=== PATIENT | male | born 1980 | race African-American/Black ===

== ENCOUNTER 2019-07-02 15:20 | Emergency (ER) | payer SELFPAY ==
--- NOTE | 2019-07-02 17:16 | RAD REPORT ---
EXAM DESCRIPTION: RAD - Chest Pa And Lat (2 Views) - 07/02/2019 5:10 pm CLINICAL HISTORY: Congestion;Cough COMPARISON: None. TECHNIQUE: PA and lateral views of the chest were obtained. FINDINGS: The lungs are clear. Heart size is normal and central vasculature is within normal limit s. No pleural effusion or pneumothorax seen. No acute bony finding noted. No aortic abnormality. IMPRESSION: No acute cardiopulmonary process.
[2019-07-02] MEDS ORDERED: IPRATROPIUM BROM 0.5MG/2.5ML ONE (18:14)
[2019-07-02] MEDS ORDERED: ALBUTEROL 2.5 MG/3 ML NEB SOL ONE (18:14)
--- NOTE | 2019-07-02 18:32 | ER ---
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 Denies fever. Transition of care: patient was not received from another setting of care. Onset of symptoms was June 28, 2019. Risk Assessment: Do you want to hurt yourself or someone else? Patient reports no desire to harm self or others. Care prior to arrival: None. 15:47 Method Of Arrival: Ambulatory hb 15:47 Acuity: ARIS 3 hb 16:00 Initial Sepsis Screen: Does the patient meet any 2 criteria? No. Patient's initial wh sepsis screen is negative. Does the patient have a suspected source of infection? No. Patient's initial sepsis screen is negative. Triage Assessment: 16:00 Respiratory: Onset: The symptoms/episode began/occurred yesterday, the patient reports wh symptoms have resolved. Historical: - Allergies: 15:48 Aspirin; hb - Home Meds: 15:48 None [Active]; hb - PMHx: 15:48 None; hb - PSHx: 15:48 None; hb - Immunization history:: Adult Immunizations up to date. - Social history:: Smoking status: Patient/guardian denies using tobacco. - Ebola Screening: : No symptoms or risks identified at this time. Screenin:00 Abuse screen: Denies threats or abuse. Denies injuries from another. Nutritional wh screening: No deficits noted. Tuberculosis screening: No symptoms or risk factors identified. Fall Risk None identified. Assessment: 16:00 General: Appears in no apparent distress. Behavior is calm, cooperative, appropriate wh for age. Pain: Denies pain. Neuro: Level of Consciousness is awake, alert, obeys commands, Oriented to person, place, time, situation, Appropriate for age. Cardiovascular: Heart tones S1 S2 Rhythm is regular. Respiratory: Reports shortness of breath Airway is patent Respiratory effort is even, unlabored, Respiratory pattern is regular, symmetrical, Breath sounds are clear bilaterally. GI: Abdomen is flat, non-distended. : No signs and/or symptoms were reported regarding the genitourinary system. EENT: No signs and/or symptoms were reported regarding the EENT system. Derm: Skin is intact, is healthy with good turgor, Skin is pink, warm \T\ dry. normal. Musculoskeletal: Circulation, motion, and sensation intact. 17:15 Reassessment: Patient appears in no apparent distress at this time. No changes from previously documented assessment. Patient and/or family updated on plan of care and expected duration. Pain level reassessed. Patient is alert, oriented x 3, equal unlabored respirations, skin warm/dry/pink. 18:37 Reassessment: Patient appears in no apparent distress at this time. No changes from previously documented assessment. Patient and/or family updated on plan of care and expected duration. Pain level reassessed. Patient is alert, oriented x 3, equal unlabored respirations, skin warm/dry/pink. Patient states feeling better. Patient states symptoms have improved. Vital Signs: 15:48 BP 141 / 93; Pulse 74; Resp 16; Temp 98.3; Pulse Ox 97% ; Weight 82 kg; Height 6 ft. hb (182.88 cm); Pain 8/10; 17:15 BP 151 / 103; Pulse 62; Resp 18; Pulse Ox 97% on R/A; wh 18:38 BP 145 / 105; Pulse 64; Resp 18; Pulse Ox 100% on R/A; wh 15:48 Body Mass Index 24.52 (82.00 kg, 182.88 cm) hb ED Course: 15:47 Patient arrived in ED. hb 15:48 Triage completed. hb 15:48 Arm band placed on. hb 15:55 Minoo Quintanilla [facility]C [facility] kb 15:55 Mansoor Ramirez MD is Attending Physician. kb 16:00 Patient has correct armband on for positive identification. Bed in low position. Call light in reach. Side rails up X 1. Pulse ox on. NIBP on. 16:37 Miley Morgan is Primary Nurse. 17:48 Chest Pa And Lat (2 Views) XRAY In Process Unspecified. EDMS 18:39 No provider procedures requiring assistance completed. Patient did not have IV access during this emergency room visit. Administered Medications: 18:14 Drug: Albuterol 2.5 mg Route: Inhalation; 18:45 Follow up: Response: No adverse reaction; Wheezing diminished 18:14 Drug: AtroVENT Aerosol 0.5 mg Route: Inhalation; 18:45 Follow up: Response: No adverse reaction; Wheezing diminished Outcome: 18:31 Discharge ordered by . ivana 18:44 Discharged to home ambulatory. 18:44 Condition: stable 18:44 Discharge instructions given to patient, Instructed on discharge instructions, follow up and referral plans. medication usage, POC SOB Demonstrated understanding of instructions, follow-up care, medications, POC Prescriptions given X 1. 18:45 Patient left the ED. 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 Denies fever. hb
--- NOTE | 2019-07-02 18:33 | EDPHYS ---
Physician Documentation [facility] Name: Flaquito Jules Age: 38 yrs Sex: Male : 1980 Arrival Date: 07/02/2019 Time: 15:47 Bed 23 Private MD: ED Physician Mansoor Ramirez HPI: 07/02 18:29 This 38 yrs old Black Male presents to ER via Ambulatory with complaints of Shortness kb Of Breath. 18:29 The patient has shortness of breath at rest. Onset: The symptoms/episode began/occurred kb yesterday. Duration: The symptoms are continuous. The patient's shortness of breath is aggravated by nothing, is alleviated by nothing. Associated signs and symptoms: Pertinent positives: non-productive cough. Severity of symptoms: At their worst the symptoms were mild moderate in the emergency department the symptoms are unchanged. The patient has not experienced similar symptoms in the past. The patient has not recently seen a physician. 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 Reports he had asthma as a kid, but hasn't had a problem with it in years. Historical: - Allergies: 15:48 Aspirin; hb - Home Meds: 15:48 None [Active]; hb - PMHx: 15:48 None; hb - PSHx: 15:48 None; hb - Immunization history:: Adult Immunizations up to date. - Social history:: Smoking status: Patient/guardian denies using tobacco. - Ebola Screening: : No symptoms or risks identified at this time. ROS: 18:28 Constitutional: Negative for fever, chills, and weight loss, ENT: Negative for injury, kb pain, and discharge, Neck: Negative for injury, pain, and swelling, Cardiovascular: Negative for chest pain, palpitations, and edema, Abdomen/GI: Negative for abdominal pain, nausea, vomiting, diarrhea, and constipation, Back: Negative for injury and pain, : Negative for injury, bleeding, discharge, and swelling, MS/Extremity: Negative for injury and deformity, Skin: Negative for injury, rash, and discoloration, Neuro: Negative for headache, weakness, numbness, tingling, and seizure. 18:28 Respiratory: Positive for cough, shortness of breath. Exam: 18:28 Constitutional: This is a well developed, well nourished patient who is awake, alert, kb and in no acute distress. Head/Face: Normocephalic, atraumatic. ENT: Nares patent. No nasal discharge, no septal abnormalities noted. Tympanic membranes are normal and external auditory canals are clear. Oropharynx with no redness, swelling, or masses, exudates, or evidence of obstruction, uvula midline. Mucous membranes moist. Neck: Trachea midline, no thyromegaly or masses palpated, and no cervical lymphadenopathy. Supple, full range of motion without nuchal rigidity, or vertebral point tenderness. No Meningismus. Chest/axilla: Normal chest wall appearance and motion. Nontender with no deformity. No lesions are appreciated. Cardiovascular: Regular rate and rhythm with a normal S1 and S2. No gallops, murmurs, or rubs. Normal PMI, no JVD. No pulse deficits. Respiratory: Lungs have equal breath sounds bilaterally, clear to auscultation and percussion. No rales, rhonchi or wheezes noted. No increased work of breathing, no retractions or nasal flaring. Abdomen/GI: Soft, non-tender, with normal bowel sounds. No distension or tympany. No guarding or rebound. No evidence of tenderness throughout. Back: No spinal tenderness. No costovertebral tenderness. Full range of motion. Skin: Warm, dry with normal turgor. Normal color with no rashes, no lesions, and no evidence of cellulitis. MS/ Extremity: Pulses equal, no cyanosis. Neurovascular intact. Full, normal range of motion. Neuro: Awake and alert, GCS 15, oriented to person, place, time, and situation. Cranial nerves II-XII grossly intact. Motor strength 5/5 in all extremities. Sensory grossly intact. Cerebellar exam normal. Normal gait. Vital Signs: 15:48 BP 141 / 93; Pulse 74; Resp 16; Temp 98.3; Pulse Ox 97% ; Weight 82 kg; Height 6 ft. hb (182.88 cm); Pain 8/10; 17:15 BP 151 / 103; Pulse 62; Resp 18; Pulse Ox 97% on R/A; wh 18:38 BP 145 / 105; Pulse 64; Resp 18; Pulse Ox 100% on R/A; wh 15:48 Body Mass Index 24.52 (82.00 kg, 182.88 cm) hb MDM: 16:38 Patient medically screened. kb 18:26 Data reviewed: vital signs, nurses notes. Data interpreted: Pulse oximetry: on room air kb is 100 %. Interpretation: normal. Counseling: I had a detailed discussion with the patient and/or guardian regarding: the historical points, exam findings, and any diagnostic results supporting the discharge/admit diagnosis, radiology results, the need for outpatient follow up, a family practitioner, to return to the emergency department if symptoms worsen or persist or if there are any questions or concerns that arise at home. 18:28 ED course: Pt reports he feels better after neb treatment.. kb 07/02 16:36 Order name: Chest Pa And Lat (2 Views) XRAY; Complete Time: 18:02 kb Administered Medications: 18:14 Drug: Albuterol 2.5 mg Route: Inhalation; 18:45 Follow up: Response: No adverse reaction; Wheezing diminished wh 18:14 Drug: AtroVENT Aerosol 0.5 mg Route: Inhalation; 18:45 Follow up: Response: No adverse reaction; Wheezing diminished wh Disposition: 07/03 09:28 Co-signature as Attending Physician, Mansoor Ramirez MD I agree with the assessment and kdr plan of care. Disposition: 07/02/19 18:31 Discharged to Home. Impression: Dyspnea. - Condition is Stable. - Discharge Instructions: Shortness of Breath, [id number]. - Prescriptions for Albuterol Sulfate 90 mcg/actuation - inhale 1-2 puff by INHALATION route every 4-6 hours; 1 Inhaler. - Medication Reconciliation Form, Thank You Letter, Antibiotic Education, Prescription Opioid Use form. - Follow up: Emergency Department; When: As needed; Reason: Worsening of condition. Follow up: Private Physician; When: 2 - 3 days; Reason: Recheck today's complaints, Continuance of care, Re-evaluation by your physician. Signatures: Dispatcher [employer] EDMS Minoo Quintanilla, CONSTRUCTION LINEMAN-C FRANCISCO-Mansoor Rodriges MD MD [facility] [place] Gaona RN RN Miley Diana Corrections: (The following items were deleted from the chart) 07/02 18:45 18:31 07/02/2019 18:31 Discharged to Home. Impression: Dyspnea. Condition is Stable. wh Forms are Medication Reconciliation Form, Thank You Letter, Antibiotic Education, Prescription Opioid Use. Follow up: Emergency Department; When: As needed; Reason: Worsening of condition. Follow up: Private Physician; When: 2 - 3 days; Reason: Recheck today's complaints, Continuance of care, Re-evaluation by your physician. kb
[2019-07-02 20:32] VITALS: TEMP 98.3
[2019-07-02 20:35] VITALS: BP 145/105; O2SAT 100
== END 2019-07-02 18:45 | disposition home or self-care (01) ==
LOC: ER 15:20
DX: R06.00 Dyspnea, unspecified (principal)
CPT/HCPCS: 71046; 99284

== ENCOUNTER 2019-07-06 13:39 | Emergency (ER) | payer SELFPAY ==
[2019-07-06 14:32] LABS: Absolute Lymphocytes (CBC) 2.4 K/uL (0.7-4.9); Basophils % 1.3 % (0-1.3); Hematocrit 41.8 % (39.6-49.0); Lymphocytes % 31.4 % (15.3-44.8); MPV 8.6 fL (7.6-11.3); RBC Red Blood Cell Count 4.39 M/uL (4.33-5.43)
[2019-07-06 14:47] LABS: Protime INR 1.1
[2019-07-06 14:49] LABS: ALT/SGPT 37 U/L (12-78); AST/SGOT 20 U/L (15-37); Albumin 3.7 g/dL (3.4-5.0); Alkaline Phosphatase 71 U/L (45-117); BUN Blood Urea Nitrogen 17 mg/dL (7-18); Bicarbonate 30 mmol/L (21-32); Bilirubin Direct 0.2 mg/dL (0-0.2); Bilirubin Total 0.8 mg/dL (0.2-1.0); Glucose Level 78 mg/dL (74-106); Magnesium 2.3 mg/dL (1.8-2.4); NT PRO-BNP 23 pg/mL (<125); Potassium 3.6 mmol/L (3.5-5.1); Sodium Level 141 mmol/L (136-145); Troponin (Emerg Dept Use Only) < 0.02 ng/mL (0.0-0.045)
[2019-07-06] MEDS ORDERED: IPRATROPIUM BROM 0.5MG/2.5ML ONE (15:17)
[2019-07-06] MEDS ORDERED: predniSONE 20 MG TAB ONE (15:17)
[2019-07-06] MEDS ORDERED: ALBUTEROL 2.5 MG/3 ML NEB SOL ONE ×2 (15:17→15:52)
[2019-07-06] MEDS ORDERED: METHYLPREDNISOLONE 125 MG INJ ONE (15:17)
[2019-07-06] MEDS ORDERED: Levofloxacin500mg IV 500 MG/100 ML BAG IV ONE (15:18)
--- NOTE | 2019-07-06 15:34 | RAD REPORT ---
EXAM DESCRIPTION: RAD - Chest Single View - 07/06/2019 2:45 pm CLINICAL HISTORY: Cough, dyspnea COMPARISON: July 02 TECHNIQUE: AP portable chest image was obtained 1440 hours . FINDINGS: Lung volumes are low but clear. No failure or volume overload. Heart and vasculature are n ormal. No measurable pleural effusion and no pneumothorax. No acute bony abnormality seen. No acute a ortic findings suspected. IMPRESSION: No acute cardiopulmonary process. No significant interval change.
--- NOTE | 2019-07-06 15:42 | EKG ---
Test Date: 2019-07-06 Test Time: 14:02:52 Appraiser Personal Property: FELICIA MEASUREMENT RESULTS: Intervals: Rate: 77 IL: 156 QRSD: 78 QT: 366 QTc: 414 [place]: P: 72 IL: 156 QRS: 82 T: 59 INTERPRETIVE STATEMENTS: Normal sinus rhythm with sinus arrhythmia Normal ECG No previous ECG available for comparison Electronically Signed On 07-06-19 15:41:38 MARKET RISK ANALYST by Morgan Bynum
--- NOTE | 2019-07-06 16:19 | ER ---
Nurse's Notes [facility] Name: Flaquito Jules Age: 38 yrs Sex: Male : 1980 Arrival Date: 07/06/2019 Time: 13:42 Bed 30 Private MD: Diagnosis: Cough;Dyspnea;Asthma Presentation: 07/06 13:44 Presenting complaint: Patient states: "I got a real bad shortness of breath. I was here aj1 evening and I have a real bad cough now. I work around a lot of dust so I've been fine the whole weekend, but today theres too much dust in the air." Patient reports that he had a chest X-Ray done on and it was normal. Denies fever. Transition of care: patient was not received from another setting of care. Onset of symptoms was 2018. Risk Assessment: Do you want to hurt yourself or someone else? Patient reports no desire to harm self or others. Initial Sepsis Screen: Does the patient meet any 2 criteria? No. Patient's initial sepsis screen is negative. Does the patient have a suspected source of infection? No. Patient's initial sepsis screen is negative. Care prior to arrival: None. 13:44 Method Of Arrival: Ambulatory aj1 13:44 Acuity: ARIS 4 aj1 Triage Assessment: 13:47 General: Appears in no apparent distress. comfortable, Behavior is calm, cooperative, aj1 appropriate for age. Pain: Complains of pain in chest Pain currently is 9 out of 10 on a pain scale. Neuro: Level of Consciousness is awake, alert, obeys commands. Cardiovascular: Patient's skin is warm and dry. Respiratory: Reports shortness of breath cough that is non-productive, Airway is patent Respiratory effort is even, unlabored, Respiratory pattern is regular, symmetrical, Onset: The symptoms/episode began/occurred this morning, the patient has mild shortness of breath. Historical: - Allergies: 13:47 Aspirin; aj1 - Home Meds: 13:47 None [Active]; aj1 - PMHx: 13:47 None; aj1 - PSHx: 13:47 None; aj1 - Immunization history:: Flu vaccine is not up to date. - Social history:: Smoking status: Patient uses tobacco products, denies chronic smoking, but will smoke occasionally. - Ebola Screening: : Patient denies travel to an Ebola-affected area in the 21 days before illness onset. - Family history:: not pertinent. Screenin:00 Abuse screen: Denies threats or abuse. Nutritional screening: No deficits noted. tr5 Tuberculosis screening: No symptoms or risk factors identified. Fall Risk None identified. Assessment: 14:00 General: Appears uncomfortable, Behavior is calm, cooperative, appropriate for age. tr5 Pain: Denies pain. Neuro: Level of Consciousness is awake, alert, obeys commands, Oriented to person, place, time, Furnace Checker are equal bilaterally Moves all extremities. Cardiovascular: Heart tones present Capillary refill < 3 seconds Pulses are all present. Edema is absent. Rhythm is regular. Respiratory: Airway is patent Respiratory effort is even, unlabored, Respiratory pattern is regular, symmetrical, Breath sounds are clear bilaterally. Respiratory: Reports shortness of breath cough that is. GI: No signs and/or symptoms were reported involving the gastrointestinal system. : No signs and/or symptoms were reported regarding the genitourinary system. EENT: No signs and/or symptoms were reported regarding the EENT system. Derm: No signs and/or symptoms reported regarding the dermatologic system. Musculoskeletal: No signs and/or symptoms reported regarding the musculoskeletal system. Vital Signs: 13:47 BP 124 / 90; Pulse 96; Resp 18; Temp 99.0; Pulse Ox 95% on R/A; Weight 74.84 kg (R); aj1 Height 6 ft. 0 in. (182.88 cm) (R); Pain 9/10; 14:25 BP 141 / 93; Pulse 71; Resp 18; Temp 98.4(O); Pulse Ox 91% ; mh5 15:56 BP 138 / 92; Pulse 89; Resp 22; Temp 98.7(O); Pulse Ox 99% on 2 lpm NC; mh5 13:47 Body Mass Index 22.38 (74.84 kg, 182.88 cm) aj1 ED Course: 13:42 Patient arrived in ED. mr 13:47 Triage completed. aj1 13:47 Arm band placed on Patient placed in an exam room. aj1 13:49 Dionte Carrasquillo MD is Attending Physician. [facility] 13:56 Bassem Ashley RN is Primary Nurse. tr5 14:13 EKG done, by prototype technician. reviewed by Dionte Carrasquillo MD. [facility] 14:24 Initial lab(s) drawn, by ca, sent to lab. Inserted saline lock: 20 gauge in right mh5 antecubital area, using aseptic technique. 14:25 Patient has correct armband on for positive identification. Placed in gown. Bed in low mh5 position. Call light in reach. Side rails up X 1. Warm blanket given. retaining room cutter on. Pulse ox on. NIBP on. 14:27 Basic Metabolic Panel Sent. [facility] 14:27 CBC with Diff Sent. [facility] 14:27 LFT's Sent. [facility] 14:27 Magnesium Sent. [facility] 14:27 NT PRO-BNP Sent. [facility] 14:28 PT-INR Sent. [facility] 14:28 Troponin (emerg Dept Use Only) Sent. [facility] 14:45 XRAY Chest (1 view) In Process Unspecified. EDKS 16:18 Raymond Pike MD is Referral Physician. [facility] 16:51 No provider procedures requiring assistance completed. IV discontinued. tr5 Administered Medications: 15:10 CANCELLED (Duplicate Order): predniSONE 20 mg PO once [facility] 15:26 Drug: predniSONE 40 mg Route: PO; tr5 16:00 Follow up: Response: Marked relief of symptoms tr5 15:27 Drug: Albuterol - atroVENT (3:1) (2.5 mg - 0.5 mg) 3 ml Route: Nebulizer; tr5 15:27 Drug: SOLU-Medrol 125 mg Route: IVP; Site: right antecubital; tr5 16:48 Follow up: Response: Marked relief of symptoms tr5 15:27 Drug: levofloxacin 500 mg Volume: 100 ml; Route: IVPB; Infused Over: 60 mins; Site: tr5 right antecubital; 15:58 Drug: Albuterol 5 mg Route: Inhalation; tr5 Outcome: 16:18 Discharge ordered by . [facility] 16:51 Discharged to home ambulatory. tr5 16:51 Condition: stable 16:51 Discharge instructions given to patient, Instructed on discharge instructions, follow up and referral plans. medication usage, Demonstrated understanding of instructions, follow-up care, medications, Prescriptions given X 4. 16:54 Patient left the ED. tr5 Signatures: Dispatcher [employer] EDKS Eliza Poole RN RN aj1 Dionte Carrasquillo MD MD cha Rivera, Jennifer Ruffin, Tana 5 Asya Jones 3 Bassem Ashley RN RN tr5
--- NOTE | 2019-07-06 16:20 | EDPHYS ---
Physician Documentation [facility] Name: Flaquito Jules Age: 38 yrs Sex: Male : 1980 Arrival Date: 07/06/2019 Time: 13:42 Bed 30 Private MD: ED Physician Dionte Carrasquillo HPI: 07/06 15:08 This 38 yrs old Black Male presents to ER via Ambulatory with complaints of Cough, ro Shortness Of Breath. 15:08 The patient or guardian reports airway noise, cough, difficulty breathing. Onset: The ro symptoms/episode began/occurred 2 day(s) ago. Severity of symptoms: At their worst the symptoms were mild, in the emergency department the symptoms are unchanged. Modifying factors: The symptoms are alleviated by nothing, the symptoms are aggravated by cold weather, damp environment, exertion. Associated signs and symptoms: The patient has no apparent associated signs or symptoms. The patient has experienced similar episodes in the past, a few times. Historical: - Allergies: 13:47 Aspirin; aj1 - Home Meds: 13:47 None [Active]; aj1 - PMHx: 13:47 None; aj1 - PSHx: 13:47 None; aj1 - Immunization history:: Flu vaccine is not up to date. - Social history:: Smoking status: Patient uses tobacco products, denies chronic smoking, but will smoke occasionally. - Ebola Screening: : Patient denies travel to an Ebola-affected area in the 21 days before illness onset. - Family history:: not pertinent. ROS: 15:08 Constitutional: Negative for fever, chills, and weight loss, Eyes: Negative for injury, ro pain, redness, and discharge, ENT: Negative for injury, pain, and discharge, Neck: Negative for injury, pain, and swelling, Cardiovascular: Negative for chest pain, palpitations, and edema, Abdomen/GI: Negative for abdominal pain, nausea, vomiting, diarrhea, and constipation, Back: Negative for injury and pain, : Negative for injury, bleeding, discharge, and swelling, MS/Extremity: Negative for injury and deformity, Skin: Negative for injury, rash, and discoloration, Neuro: Negative for headache, weakness, numbness, tingling, and seizure, Psych: Negative for depression, anxiety, suicide ideation, homicidal ideation, and hallucinations, Allergy/Immunology: Negative for hives, rash, and allergies, Endocrine: Negative for neck swelling, polydipsia, polyuria, polyphagia, and marked weight changes, Hematologic/Lymphatic: Negative for swollen nodes, abnormal bleeding, and unusual bruising. 15:08 Respiratory: Positive for cough, shortness of breath, on exertion. Exam: 15:08 Constitutional: This is a well developed, well nourished patient who is awake, alert, ro and in no acute distress. Head/Face: Normocephalic, atraumatic. Eyes: Pupils equal round and reactive to light, extra-ocular motions intact. Lids and lashes normal. Conjunctiva and sclera are non-icteric and not injected. Cornea within normal limits. Periorbital areas with no swelling, redness, or edema. ENT: Nares patent. No nasal discharge, no septal abnormalities noted. Tympanic membranes are normal and external auditory canals are clear. Oropharynx with no redness, swelling, or masses, exudates, or evidence of obstruction, uvula midline. Mucous membranes moist. Neck: Trachea midline, no thyromegaly or masses palpated, and no cervical lymphadenopathy. Supple, full range of motion without nuchal rigidity, or vertebral point tenderness. No Meningismus. Chest/axilla: Normal chest wall appearance and motion. Nontender with no deformity. No lesions are appreciated. Cardiovascular: Regular rate and rhythm with a normal S1 and S2. No gallops, murmurs, or rubs. Normal PMI, no JVD. No pulse deficits. Abdomen/GI: Soft, non-tender, with normal bowel sounds. No distension or tympany. No guarding or rebound. No evidence of tenderness throughout. Back: No spinal tenderness. No costovertebral tenderness. Full range of motion. Male : Normal genitalia with no discharge or lesions. Skin: Warm, dry with normal turgor. Normal color with no rashes, no lesions, and no evidence of cellulitis. MS/ Extremity: Pulses equal, no cyanosis. Neurovascular intact. Full, normal range of motion. Neuro: Awake and alert, GCS 15, oriented to person, place, time, and situation. Cranial nerves II-XII grossly intact. Motor strength 5/5 in all extremities. Sensory grossly intact. Cerebellar exam normal. Normal gait. Psych: Awake, alert, with orientation to person, place and time. Behavior, mood, and affect are within normal limits. 15:08 Respiratory: the patient does not display signs of respiratory distress, Respirations: normal, Breath sounds: rhonchi, wheezing: expiratory Vital Signs: 13:47 BP 124 / 90; Pulse 96; Resp 18; Temp 99.0; Pulse Ox 95% on R/A; Weight 74.84 kg (R); aj1 Height 6 ft. 0 in. (182.88 cm) (R); Pain 9/10; 14:25 BP 141 / 93; Pulse 71; Resp 18; Temp 98.4(O); Pulse Ox 91% ; mh5 15:56 BP 138 / 92; Pulse 89; Resp 22; Temp 98.7(O); Pulse Ox 99% on 2 lpm NC; mh5 13:47 Body Mass Index 22.38 (74.84 kg, 182.88 cm) aj1 MDM: 13:49 Patient medically screened. [facility] 15:08 Data reviewed: vital signs, nurses notes, lab test result(s), EKG, radiologic studies, ro plain films. 07/06 13:49 Order name: Basic Metabolic Panel; Complete Time: 15:06 [facility] 07/06 13:49 Order name: CBC with Diff; Complete Time: 15:06 [facility] 07/06 13:49 Order name: LFT's; Complete Time: 15:06 [facility] 07/06 13:49 Order name: Magnesium; Complete Time: 15:06 [facility] 07/06 13:49 Order name: NT PRO-BNP; Complete Time: 15:06 [facility] 07/06 13:49 Order name: PT-INR; Complete Time: 15:06 [facility] 07/06 13:49 Order name: Troponin (emerg Dept Use Only); Complete Time: 15:06 [facility] 07/06 13:49 Order name: XRAY Chest (1 view) [facility] 07/06 13:49 Order name: EKG; Complete Time: 13:52 [facility] 07/06 13:49 Order name: Cardiac monitoring; Complete Time: 14:03 [facility] 07/06 13:49 Order name: EKG - Nurse/Tech; Complete Time: 14:05 [facility] 07/06 13:49 Order name: IV Saline Lock; Complete Time: 14:48 [facility] 07/06 13:49 Order name: Labs collected and sent; Complete Time: 14:47 [facility] 07/06 13:49 Order name: O2 Per Protocol; Complete Time: 14:06 [facility] 07/06 13:49 Order name: O2 Sat Monitoring; Complete Time: 14:05 [facility] Administered Medications: 15:10 CANCELLED (Duplicate Order): predniSONE 20 mg PO once [facility] 15:26 Drug: predniSONE 40 mg Route: PO; tr5 16:00 Follow up: Response: Marked relief of symptoms tr5 15:27 Drug: Albuterol - atroVENT (3:1) (2.5 mg - 0.5 mg) 3 ml Route: Nebulizer; tr5 15:27 Drug: SOLU-Medrol 125 mg Route: IVP; Site: right antecubital; tr5 16:48 Follow up: Response: Marked relief of symptoms tr5 15:27 Drug: levofloxacin 500 mg Volume: 100 ml; Route: IVPB; Infused Over: 60 mins; Site: tr5 right antecubital; 15:58 Drug: Albuterol 5 mg Route: Inhalation; tr5 Disposition: 07/06/19 16:18 Discharged to Home. Impression: Cough, Dyspnea, Asthma. - Condition is Stable. - Discharge Instructions: Asthma, Adult, Shortness of Breath, Cool Mist Vaporizer, Shortness of Breath, Smaj-ez-[id number], Asthma, Adult, Piwb-gk-Dpql, Cough, Adult, Ugsc-aw-Lmjq, Cough, Adult. - Prescriptions for Levaquin 500 mg Oral Tablet - take 1 tablet by ORAL route once daily for 7 days; 7 tablet. Albuterol Sulfate 2.5 mg /3 mL (0.083 %) Inhalation Solution for Nebulization - inhale 1 unit by NEBULIZATION route every 8 hours As needed; 1 box. Prednisone 20 mg Oral Tablet - take 2 tablet by ORAL route once daily for 5 days; 10 tablet. Albuterol Sulfate 90 mcg/actuation - inhale 1-2 puff by INHALATION route every 4-6 hours; 1 Inhaler. - Medication Reconciliation Form, Thank You Letter, Antibiotic Education, Prescription Opioid Use form. - Follow up: Private Physician; When: 2 - 3 days; Reason: Recheck today's complaints, Continuance of care, Re-evaluation by your physician. Follow up: Raymond Pike; When: 2 - 3 days; Reason: Recheck today's complaints, Re-evaluation by your physician. - Problem is new. - Symptoms have improved. Signatures: Dispatcher [employer] EDEliza Hackett RN RN aj1 Dionte Carrasquillo MD MD cha Rodriguez, Tommie, RN RN tr5 Corrections: (The following items were deleted from the chart) 15:10 15:08 predniSONE 20 mg PO once ordered. ro starr 16:54 16:18 07/06/2019 16:18 Discharged to Home. Impression: Cough; Dyspnea; Asthma. tr5 Condition is Stable. Discharge Instructions: Asthma, Adult, Shortness of Breath, Cool Mist Vaporizer, Shortness of Breath, Fofj-na-Cjqi, Asthma, Adult, Spng-vo-Pedg, Cough, Adult, Wtxg-bz-Ytaf, Cough, Adult. Prescriptions for Levaquin 500 mg Oral Tablet - take 1 tablet by ORAL route once daily for 7 days; 7 tablet, Albuterol Sulfate 2.5 mg /3 mL (0.083 %) Inhalation Solution for Nebulization - inhale 1 unit by NEBULIZATION route every 8 hours As needed; 1 box, Prednisone 20 mg Oral Tablet - take 2 tablet by ORAL route once daily for 5 days; 10 tablet, Albuterol Sulfate 90 mcg/actuation - inhale 1-2 puff by INHALATION route every 4-6 hours; 1 Inhaler. and Forms are Medication Reconciliation Form, Thank You Letter, Antibiotic Education, Prescription Opioid Use. Follow up: Private Physician; When: 2 - 3 days; Reason: Recheck today's complaints, Continuance of care, Re-evaluation by your physician. Follow up: Raymond Pike; When: 2 - 3 days; Reason: Recheck today's complaints, Re-evaluation by your physician. Problem is new. Symptoms have improved. [facility]
[2019-07-06 17:04] VITALS: BP 138/92; TEMP 98.7; O2SAT 99
== END 2019-07-06 16:54 | disposition home or self-care (01) ==
LOC: ER 13:39
DX: R06.00 Dyspnea, unspecified (principal); J45.909 Unspecified asthma, uncomplicated; Z72.0 Tobacco use; Z88.6 Allergy status to analgesic agent
CPT/HCPCS: 36415; 71045; 80048; 80076; 83735; 83880; 84484; 85025; 85610; 93005; 94640; 96374; 96375; 99285; J2930; J7512

== ENCOUNTER 2020-08-05 19:01 | Emergency (ER) | payer OTHER, SELFPAY ==
--- OUTSIDE RECORDS SUMMARY | 2020-08-05 19:04 | XMS REPORT | Encounter Summary ---
:1980 Author Care Team Providers Name Role Phone Rozina Beth OTHER [phone] Reason for Visit Pain Instructions 1. Shoulder pain shoulder pain: care instru ctions cyclobenzaprine 10 mg tabl et Tylenol-Codeine #3 300 mg- 30 mg tablet 2. Pain in right arm Discussion Note: None recorded. Plan of Care Patient Instructions F/U if no improvement in 2 weeks fo r possible imaging. Do not lift more than 10lbs, stop any activity that increases pain. Reminders Provider Appointments Wellness on or around Faviola jones Artis Exam 03/11/2021 DORA Campos Lab None recorded. Referral None recorded. Procedures None recorded. Surgeries None recorded. Imaging None recorded. Medications Name Start Date albuterol sulfate HFA 90 mcg/actuation aerosol inhaler Inhale 2 puffs every 4 hours by inhalation route. cyclobenzaprine 10 mg tablet Take 1 tablet 3 times a day by oral route for 15 days . ibuprofen Tylenol-Codeine #3 300 mg-30 mg tablet 1-2 tabs p.o. q 6 hours PRN pain Medications Administered None recorded. Vitals Height Weight BMI Blood Pressure 72 in 173 lbs 12.8 oz 23.6 kg/m2 129/75 mm[Hg] Results Lab Results None recorded. Allergies Code Code System Name Reaction Severity Status Onset 1191 RxNorm Aspirin Hives Moderate Active Problems No Known Problems Procedures None recorded. Vaccine List None recorded. 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 History of Present Illness Note: Right shoulder pain to right inner elbow x 4 days. Review of Systems General Adult ROS Reported By: Patient Constitutional: Constitutional: no fever, no night sweats, no significant weight gain, no significant weight loss, no exercise intolerance Eyes: Eyes: no dry eyes, no irrita tion, no vision change ENMT: Ears: no difficulty hearing, no ear pain. Nose: no frequent nosebleeds, no nose/sinus pr oblems. Mouth/Throat: no sore throat, no bleeding gums, no snoring, no dry mouth, no mouth ulcers, no oral abnormalitie s, no teeth problems, No Post Nasal Dripping, Constantly c learing the throat, hiccups, itching throat, (normal) wea k voice: constant Cardiovascular: Cardiovascular: no chest juvenal n, no arm pain on exertion, no shortness of breath when wal belén, no shortness of breath when lying down, no palpitations, no known heart murmur Respiratory: Respiratory: no cough, no wh eezing, no shortness of breath, no coughing up blood Gastrointestinal: Gastrointestinal: no abdomin al pain, no vomiting, normal appetite, no diarrhea, not v omiting blood Genitourinary: Genitourinary: no incontinen ce, no difficulty urinating, no hematuria, no increased freq uency Musculoskeletal: Musculoskeletal: no muscle a ches, no muscle weakness, no back pain, no swelling in the ext remities, arthralgias/joint pain Integumentary: Skin: no abnormal mole, no j aundice, no rashes Neurologic: Neurologic: no loss of consc iousness, no weakness, no seizures, no dizziness, no h eadaches, numbness; tingling right hand Psychiatric: Psych: no depression, no sle ep disturbances, feeling safe in relationship, no alcohol abu se Endocrine: Endocrine: no fatigue Hematologic/Lymphatic: Hematologic/Lymphatic no swo llen glands, no bruising Allergic/Immunologic: Allergy/Immunologic: no runn y nose, no sinus pressure, no itching, no hives, no freque nt sneezing Physical Exam General Adult Exam - Male Reported By: Patient Constitutional: General Appearance: healthy- appearing, well-nourished, well-developed. Level of Dis tress: NAD. Ambulation: ambulating normally Psychiatric: Insight: good judgement. Men judy Status: active and alert, normal mood, normal affect. Orienta tion: to time, to place, to person. Memory: recent memory normal , remote memory normal Head: Head: normocephalic, atrauma tic Eyes: Lids and Conjunctivae: non-i njected, no discharge, no pallor. Pupils: PERRLA. Corneas: fady ssly intact. EOM: EOMI. Lens: clear. Sclerae: non-icteric. Vision : peripheral vision grossly intact, acuity grossly intact ENMT: Ears: no lesions on external ear. Hearing: no hearing loss Neck: Neck: supple, trachea midlin e, no masses, FROM. Lymph Nodes: no cervical LAD, no supraclavic ular LAD, no axillary LAD, no inguinal LAD. Thyroid: no enlargement , non-tender, no nodules Lungs: Respiratory effort: no dyspn ea. Percussion: no dullness, flatness, or hyperresonance. Auscultat ion: breath sounds normal, good air movement, CTA except as note d, no wheezing, no rales/crackles, no rhonchi Cardiovascular: Apical Impulse: not displace d. Heart Auscultation: RRR, normal S1, normal S2, no murmurs, no ru bs, no gallops. Neck vessels: no carotid bruits. Pulses inclu ding femoral / pedal: normal throughout Musculoskeletal:: Motor Strength and Tone: nor mal, normal tone. Joints, Bones, and Muscles: normal movement of all extremities, no bony abnormalities, no contractures, no malalign ment, tenderness. Extremities: no cyanosis, no edema, no varic osities, no palpable cord Neurologic: Gait and Station: normal gai t, normal station. Cranial Nerves: grossly intact. Sensation: g rossly intact. Reflexes: DTRs 2+ bilaterally throughout. Coor dination and Cerebellum: [id number] intact, no tremor Skin: Inspection and palpation: no rash, no lesions, no ulcer, no abnormal nevi, no induration , no nodules, good turgor, no jaundice. Nails: normal Back: Thoracolumbar Appearance: no rmal curvature
--- OUTSIDE RECORDS SUMMARY | 2020-08-05 19:04 | XMS REPORT | Encounter Summary ---
:1980 Author Care Team Providers Name Role Phone Rozina Beth OTHER [phone] Reason for Visit medication refill Instructions 1. Asthma albuterol sulfate HFA 90 m cg/actuation aerosol inhaler controlling your asthma: c are instructions learning about asthma Discussion Note: None recorded. Plan of Care Patient Instructions F/U if no improvement. Reminders Provider Appointments Wellness on or around Faviola karen Artis Exam 03/11/2021 DORA Campos Lab None recorded. Referral None recorded. Procedures None recorded. Surgeries None recorded. Imaging None recorded. Medications Name Start Date albuterol sulfate HFA 90 mcg/actuation aerosol inhaler INHALE 2 PUFFS BY MOUTH EVERY 4 HOURS Medications Administered None recorded. Vitals Height Weight BMI Blood Pressure 72 in 178 lbs 4.8 oz 24.2 kg/m2 130/79 mm[Hg] Results Lab Results None recorded. Allergies Code Code System Name Reaction Severity Status Onset 1191 RxNorm Aspirin Hives Moderate Active Problems No Known Problems Procedures None recorded. Vaccine List None recorded. 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 History of Present Illness Note: F/U asthma, need albuterol inhaler refilled. Review of Systems Problem ROS Reported By: Patient Constitutional: Constitutional: no significa nt weight change, good appetite, no fever, happy/content, nor mal activity level, no fatigue Eyes: Eyes: no eye pain, no blurry vision, no eye redness, no eye itchiness, no eye swelling, no eye discharge, normal movement ENMT: ENMT: no ear pain, no ear di scharge, no hearing loss, no sinus pressure, no drooling, no fa cial swelling, no congestion, no sore throat, no hoarseness, no mouth lesions Cardiovascular: Cardiovascular: no chest juvenal n, normal heart rate Chest/Breasts: Breasts: no lumps, no tender ness, no discharge Respiratory: Respiratory: no wheezing, no chest tightness, no pain with respiration, normal respirat ion, cough Gastrointestinal: GI: no difficulty swallowing , no abdominal pain, no nausea, no vomiting, no diarrhea, no co nstipation, no blood in stools, no mucous in stool Genitourinary: : no discharge, no blood i n urine, no pain with urination, no increase in frequency of urination, no voiding urgency, no testicular pain, no swelling , no redness, no itching, no masses Musculoskeletal: Musculoskeletal: no soft tis carly swelling, no joint swelling, no myalgia, moves all extrem eties well, no previous injuries, no trauma Skin: Skin: no pain, no itchiness, no skin dryness, no flaking, no redness, no rash, no hives, no skin lesions, no skin growths, no skin lumps, no swelling, no bruising, no insect bites Neurological symptoms: Neuro: no numbness, no weakn ess, no tingling, no burning, no shooting pain, no headache, no dizziness, no loss of conciousness Psychiatric: Psych: no depression, no anx iety, no insomnia, no stress, no loss of interest Endocrine: Endocrine: normal drinking, no temperature intolerance Allergic/Immunologic: Allergy/Immunologic: no snee zing, no runny nose Physical Exam General Adult Exam - Male [...] bony abnormalities, no contractures, no malalign ment, no tenderness. Extremities: no cyanosis, no edema, no varic osities, no palpable cord Neurologic: Gait and Station: normal gai t, normal station. Cranial Nerves: grossly intact. Sensation: g rossly intact, monofilament test intact. Reflexes: DTRs 2+ bi laterally throughout. Coordination and Cerebellum: [id number] i ntact, no tremor Skin: Inspection and palpation: no rash, no lesions, no ulcer, no abnormal nevi, no induration , no nodules, good turgor, no jaundice. Nails: normal Back: Thoracolumbar Appearance: no rmal curvature
--- OUTSIDE RECORDS SUMMARY | 2020-08-05 19:04 | XMS REPORT | Continuity of Care Document ---
:1980 Author Organization [facility] t Address [address] Bautista. [address] [place] [address] Support Name Relationship Address Phone NO Unavailable [address] [phone] [place] [address] NO Unavailable [address] [phone] [place] [address] NO Unavailable [address] [facility] [phone] [place] [address] WADDY Unavailable 10[address] [facility] [phone] [place] [address] HERBER GUSTAFSON, C Emergency Provider [address] [facility] [phone] [place] [address] PHYSICIAN Primary Care Physician Unavailable Unavailab eric HUMPHREY Next of Kin [address] [facility] [place] [address] CANDI GUSTAFSON Emergency Provider 17[address] [facility] [address] [place] [address] OSMAR GUSTAFSON, R Emergency Provider [address] [place] [address] GUNNER GUSTAFSON, E Emergency Provider [address] [facility] [address] [place] [address] MD CLARIBEL A Emergency Provider [address] [facility] [place] [address] MD GABY Emergency Provider [address] [phone] [place] [address] MD HELEN A Emergency [place] [facility] [place] [address] DO TERESA Emergency Provider [address] [email or web address] [address] Care Team Providers Name Role Phone Unavailable Unavailable Unavailable Payers Payer Name Policy Type Policy Number Effective Date Expiration Date S ource Problems This patient has no known problems. Allergies, Adverse Reactions, Alerts Allergy Allergy Status Severity Reaction(s) Onset Inactive Treating Comm ents Source Name Type Date Date Clinician aspirin DA Active SV 2019-09 [facility] 09-20 Clear 00:00: [place] 00 [facility] Aspirin Allergy Active Moderate Hives [facility] Social History Smoking Status Start Date Stop Date Source Current Some Day Smoker [facility] Medications Ordered Filled Start Stop Current Ordering Indication Dosage Frequency Signature Comments Components Source Medication Medication Date Date Medication? Clinician (SIG) Name Name albuterol albuterol No albuterol [facility] sulfate HFA sulfate HFA sulfate da 90 90 HFA 90 Medical mcg/actuati mcg/actuati mcg/actuat Group on aerosol on aerosol ion inhaler inhaler aerosol INHALE 2 INHALE 2 inhaler PUFFS BY PUFFS BY INHALE 2 MOUTH EVERY MOUTH EVERY PUFFS BY 4 HOURS 4 HOURS MOUTH EVERY 4 HOURS Vital Signs Vital Name Observation Time Observation Value Comments Source BP Diastolic 2020-07-08 00:00:00 79 mm[Hg] [facility] Height 2020-07-08 00:00:00 72 [in_i] [facility] BMI (Body Mass 2020-07-08 00:00:00 24.2 kg/m2 [facility] BP Systolic 2020-07-08 00:00:00 130 mm[Hg] [facility] Body Weight 2020-07-08 00:00:00 2852.8 [oz_av] [facility] BP Diastolic 2020-05-05 00:00:00 75 mm[Hg] [facility] Height 2020-05-05 00:00:00 72 [in_i] [facility] BMI (Body Mass 2020-05-05 00:00:00 23.6 kg/m2 [facility] BP Systolic 2020-05-05 00:00:00 129 mm[Hg] [facility] Body Weight 2020-05-05 00:00:00 2780.8 [oz_av] [facility] BP Diastolic 2020-03-30 00:00:00 98 mm[Hg] [facility] Height 2020-03-30 00:00:00 72 [in_i] [facility] BMI (Body Mass 2020-03-30 00:00:00 22.5 kg/m2 [facility] BP Systolic 2020-03-30 00:00:00 141 mm[Hg] [facility] Body Weight 2020-03-30 00:00:00 2656 [oz_av] [facility] BP Diastolic 2020-03-11 00:00:00 77 mm[Hg] [facility] Height 2020-03-11 00:00:00 72 [in_i] [facility] BMI (Body Mass 2020-03-11 00:00:00 22.8 kg/m2 [facility] BP Systolic 2020-03-11 00:00:00 127 mm[Hg] [facility] Body Weight 2020-03-11 00:00:00 2689.6 [oz_av] [facility] BP Diastolic 2020-02-26 00:00:00 83 mm[Hg] [facility] Height 2020-02-26 00:00:00 72 [in_i] [facility] BMI (Body Mass 2020-02-26 00:00:00 22.6 kg/m2 [facility] BP Systolic 2020-02-26 00:00:00 136 mm[Hg] [facility] Body Weight 2020-02-26 00:00:00 2662.4 [oz_av] [facility] BP Diastolic 2020-02-09 00:00:00 77 mm[Hg] [facility] BP Systolic 2020-02-09 00:00:00 128 mm[Hg] [facility] Body Weight 2020-02-09 00:00:00 2706 [oz_av] [facility] Procedures This patient has no known procedures. Plan of Care Planned Activity Planned Date Details Comments Source Future Appointment 2021-03-11 Jake Curiel 00:00:[address] [place] [address] Group [address]; , [place] [address] Instructions [facility] Encounters Start End Encounter Admission Attending Care Care Encounter Source Date/Time Date/Time Type Type Clinicians Facility Department ID 2020-07-08 2020-07-08 Rozina [place] - [id number] M [facility] 00:00:00 00:00:00 [facility] VALIDATION ANALYST: [address] [facility] [address], [place] [address] , Ph. 2020-05-05 2020-05-05 Rozina [place] - [id number] M [facility] 00:00:00 00:00:00 [facility] Medical VALIDATION ANALYST: [address] [facility] [address], [place] [address] , Ph. 2020-03-30 2020-03-30 Rozina [place]ES [place] - [id number] M [facility] 00:00:00 00:00:00 [facility] Medical VALIDATION ANALYST: [address] [facility] [address], [place] [address] , Ph. 2020-03-11 2020-03-11 Rozina PAREDES [place] - [id number] M [facility] 00:00:00 00:00:00 [facility] Medical VALIDATION ANALYST: [address] [facility] [address], [place] [address] , Ph. 2020-02-26 2020-02-26 Rozina PAREDES [place] - [id number] M [facility] 00:00:00 00:00:00 [facility] Medical VALIDATION ANALYST: [address] [facility] [address], [place] [address] , Ph. 2020-02-09 2020-02-09 Rozina PAREDES [place] - [id number] M [facility] 00:00:00 00:00:00 [facility] Medical VALIDATION ANALYST: [address] [facility] [address], [place] [address] , Ph. Results Test Description Test Time Test Comments Results Result Comments Source LUPUS ANTICOAGULANT PANEL 2020-07-26 13:11:00 Test Item Value Reference Range Interpretation Comme nts RVVT PATIENT (test code = 37.7 sec 0.0-47.0 RVVTPAT) PTT LONG ACTING (test code = 46.9 sec 0.0-51.9 PTTLA) LUPUS ANTICOAGULANT PANEL (test Comment: () No lupus anticoagulant was code = LUPPT) detected. FACTOR V [id number] 13:11:00 Test Item Value Reference Range Interpretation Comments FACTOR V Comment () Result: Negativ e (no mutation MUTATION (test found)Factor V Leiden is a code = FAC5M) specific mutat ion (R506Q) in thefactor V gen e that is associated with an increased risk ofvenous t hrombosis. Factor V Leiden is more resistant toina ctivation by activated prote in C. As a result, factor Vpersists in the circulation klever ding to a mildhypercoagul able state. The Leiden mutation accounts for 90%- 95% of APC resistance. Factor V Leiden has been reportedin ramon ents with deep vein thrombosis , pulmonary embolus,central retinal vein occlusion, cere bral sinus thrombosisand h epatic vein thrombosis. Oth er risk factors to beconsidered in the workup for venous thro mbosis include [id number] muta tion in the factor II (prot hrombin) gene,protein S and C deficiency, and antithrombin deficiencies.An ticardiolipin antibody and eagle pus anticoagulant a nalysismay be appropriate for certain patients, as we ll ashomocysteine levels. Contact your local [facility] or[facility] forinformation on how to order additional test ing if desired.Methodo logy:DNA analysis of the Factor V gene was performed b yallele-specific PCR. The diagno stic sensitivity andspecificity is >99% for both. Molecular -based testing ishighly accura te, but as in any laboratory test, diagnosticerror s may occur. All test results mu st be combined withclinical in formation for the most accura te interpretation. This test was developed and i ts performance characteristics determined by [facility]. It has not been cleared or appr ovedby the Food and Drug Administration. References:Erica Meza (1995) . Clin Lab Med 16:169-186.Varsha Forde MS, PhD, FACS Meghana Brewster hDPerformed At: [facility] [address] [facility] [address], [place] [id number] Henderson MD Ph:[phone] PROTEIN S [id number] 13:11:00 Test Item Value Reference Range Interpretation Comments PROTEIN S TOTAL 108 % 60-150 This test wa s developed and its (test code = performance PROTSTOT) characteristics determined by [facility]. It has not been cleared orapproved by [facility] Food and Drug Administration. PROTEIN S FREE 107 % 57-157 This test was developed and its (test code = performance PROTSFR) characteristics determined by [facility]. It has not been cleared orapproved by [facility] Food and Drug Administration. PROTEIN S (test 118 % 63-140 Protein S ac tivity may be falsely code = PROTS) increased (mas belén anabnormal, low result) in patients receiving direct Xainhibi tor (e.g., rivaroxaban, ap ixaban, edoxaban) or adirect thro mbin inhibitor (e.g., dabigatr an) anticoagulanttr eatment due to assay interfere nce by these drugs.Performed At: [facility] [id number] Barrera MD Ph:[phone] FACTOR II [id number] 13:11:00 Test Item Value Reference Range Interpretation Comments FACTOR II Negative () No mutation MUTATION (test identified.Co mment:A point code = FAC2M) mutation (G202 10A) in the Factor II (prot hrombin)gene is the second m ost common cause of inheri tedthrombosis and accounts fo r up to 20% of inheritedthr ombophilia. The incidence o f this mutation in the population is 1 -2% and in [place] ns it is0.1%. Heterozygous ca rriers of this mutation haveprothrombin levels that are 30% higher than normal,associat ed with a 3-fold increase for venous thrombosis,but the risk cannot be defin itely quantified at t his timedue to limited data . The Factor II/prothrombin mutation mae yung in patients with idiopathic portal veinthrombosis, in patients with cerebral v ein thrombosis, inp atients using oral contracept maddy, and in patient s with placental abrup tions and growthres trictions. Another common cause of thrombosis is t heFactor V Leiden mutation (R506Q). Up to 40% of the FactorII/prothr ombin mutation gomez rs also carry the FactorLeide n mutation. Testing for oth er known causes ofthromb ophilia may also be pursued . These include the R50 6Q(Leiden) mutation in the Factor V gene, plasma homocysteinelev els, as well as testing for deficiencies of antithrombin III, protein C and protein S.Methodology:D NA analysis of the Factor I I gene was performed by PCRamplificatio n followed by restriction rodger lysis. Thediagnostic s ensitivity is >99% for both. All the tests mustbe combined with clinical inform ation for the most accuratein terpretation. Molecular-based testing is highly accurate ,but as in any laboratory test, diagnostic erro rs may occur.This test was developed and i ts performance characteristics determined by [employer]. It has not been cleared or appr ovedby the Food and Drug Administration. Diannat SR, et al. Blood. 1996 ; 88:9680-9565.Inna boudreaux EA. Circulation. 20 12; 110:e15-e18.Mar luelli I, et al. Arterioscle r Thromb Vasc Biol. 1999;19:700-703 .[place]ia Forde, MS, PhD , [facility] HospitalMeghana Swan hDPerformed At: [facility] [address] [id number] Henderson MD Ph:[phone] ANTITHROMBIN III (ATIII)2020-07-26 13:11:00 Test Item Value Reference Range Interpretation Comments ANTITHROMBIN III 129 % 75-135 Direct Xa i nhibitor (ATIII) (test code = anticoa gulants such as AT3) rivaroxaban,api xaban and edoxaban will l ead to spuriously elevatedantithr ombin activity levels possibly masking a deficiency.Perf ormed At: [facility] mgd3650 [facility] n, [place] [id number] ra Holly GUSTAFSON Ph:[phone] ANTICARDIOLIPIN [id number] 13:11:00 Test Item Value Reference Range Interpretation Comments AB CARDIOLIPIN IGA <9 APL U/mL 0-11 (test code = CARDIOAAB) Negative: <12 Indeterminate: 12 - 20 Low-Med Positiv e: >20 - 80 H igh Positive: >80Performed At : [address] [id number] Barrera MD Ph:[phone] AB CARDIOLIPIN IGG <9 GPL U/mL 0-14 (test code = CARDIOGAB) Negative: <15 Indeterminate: 15 - 20 Low-Med Positiv e: >20 - 80 H igh Positive: >80 AB CARDIOLIPIN IGM <9 MPL U/mL 0-12 (test code = CARDIOMAB) Negative: <13 Indeterminate: 13 - 20 Low-Med Positiv e: >20 - 80 H igh Positive: >80 [id number] 13:11:00 Test Item Value Reference Range Interpretation Comments [id number]-[id number] I <9 0-32 INFCE Result Units: GPI IgM IGM (test code unitsThe refe rence interval = GPIIGM) reflects a 3SD or 99th percentileinter gaetano, which is thought to repr esent a potentiallyclin ically significant result in accor dance with theInternationa l Consensus Statement on classificationc riteria for definitive anti phospholipid syndrome (APS). JThromb Haem 2006;4:295-306. Performed At: [address] [id number] Sanjai MD Ph:[phone] VFPQ-6-DPLVB I <9 0-20 INFCE Result Units: GPI IgG IGG (test code unitsThe refe rence interval = GPIIGG) reflects a 3SD or 99th percentileinter gaetano, which is thought to repr esent a potentiallyclin ically significant result in accor dance with theInternationa l Consensus Statement on th e classificationc riteria for definitive anti phospholipid syndrome (APS). JThromb Haem 2006;4:295-306. AVLR-9-GONOI I <9 0-25 INFCE Result Units: GPI IgA IGA (test code unitsThe refe rence interval = GPIIGA) reflects a 3SD or 99th percentileinter gaetano, which is thought to repr esent a potentiallyclin ically significant result in accor dance with theInternationa l Consensus Statement on e classificationc riteria for definitive anti phospholipid syndrome (APS). JThromb Haem 2006;4:295-306. FACTOR II [id number] 14:09:00 Test Item Value Reference Range Interpretation Comments FACTOR II MUTATION (test code = FAC2M) ANTITHROMBIN III (ATIII)2020-07-25 14:09:00 Test Item Value Reference Range Interpretation Comments ANTITHROMBIN III 129 % 75-135 Direct Xa i nhibitor (ATIII) (test code = anticoa gulants such as AT3) rivaroxaban,api xaban and edoxaban will l ead to spuriously elevatedantithr ombin activity levels possibly masking a deficiency.Perf ormed At: [facility] [place], [place] [id number] ra Holly GUSTAFSON Ph:[phone] ANTICARDIOLIPIN [id number] 14:09:00 Test Item Value Reference Range Interpretation Comments AB CARDIOLIPIN IGA <9 APL U/mL 0-11 (test code = CARDIOAAB) Negative: <12 Indeterminate: 12 - 20 Low-Med Positiv e: >20 - 80 H igh Positive: >80Performed At : [facility] [address] [place], [place] [id number] ra Holly GUSTAFSON Ph:[phone] AB CARDIOLIPIN IGG <9 GPL U/mL 0-14 (test code = CARDIOGAB) Negative: <15 Indeterminate: 15 - 20 Low-Med Positiv e: >20 - 80 H igh Positive: >80 AB CARDIOLIPIN IGM <9 MPL U/mL 0-12 (test code = CARDIOMAB) Negative: <13 Indeterminate: 13 - 20 Low-Med Positiv e: >20 - 80 H igh Positive: >80 [id number] I [id number] 14:09:00 Test Item Value Reference Range Interpretation Comments XOLU-1-LEBVA I <9 0-32 INFCE Result Units: GPI IgM IGM (test code unitsThe refe rence interval = GPIIGM) reflects a 3SD or 99th percentileinter gaetano, which is thought to repr esent a potentiallyclin ically significant result in accor dance with theInternationa l Consensus Statement on th e classificationc riteria for definitive anti phospholipid syndrome (APS). JThromb Haem 2006;4:295-306. Performed At: [facility] [id number] Sanjai MD Ph:[phone] HGAV-1-GTFGU I <9 0-20 INFCE Result Units: GPI IgG IGG (test code unitsThe refe rence interval = GPIIGG) reflects a 3SD or 99th percentileinter gaetano, which is thought to repr esent a potentiallyclin ically significant result in accor dance with theInternationa l Consensus Statement on th e classificationc riteria for definitive anti phospholipid syndrome (APS). JThromb Haem 2006;4:295-306. CNDR-8-DDCGU I <9 0-25 INFCE Result Units: GPI IgA IGA (test code unitsThe refe rence interval = GPIIGA) reflects a 3SD or 99th percentileinter gaetano, which is thought to repr esent a potentiallyclin ically significant result in accor dance with theInternationa l Consensus Statement on th e classificationc riteria for definitive anti phospholipid syndrome (APS). JThromb Haem 2006;4:295-306. FACTOR II [id number] 07:08:00 Test Item Value Reference Range Interpretation Comments FACTOR II MUTATION (test code = FAC2M) ANTITHROMBIN III (ATIII)2020-07-25 07:08:00 Test Item Value Reference Range Interpretation Comments ANTITHROMBIN III 129 % 75-135 Direct Xa i nhibitor (ATIII) (test code = anticoa gulants such as AT3) rivaroxaban,api xaban and edoxaban will l ead to spuriously elevatedantithr ombin activity levels possibly masking a deficiency.Perf ormed At: [facility] [place], [place] [id number] ra Holly GUSTAFSON Ph:[phone] ANTICARDIOLIPIN [id number] 07:08:00 Test Item Value Reference Range Interpretation Comments AB CARDIOLIPIN IGA (test code = CARDIOAAB) AB CARDIOLIPIN IGG (test code = CARDIOGAB) AB CARDIOLIPIN IGM (test code = CARDIOMAB) [id number] I [id number] 07:08:00 Test Item Value Reference Range Interpretation Comments MQPI-2-CYEGS I <9 0-32 INFCE Result Units: GPI IgM IGM (test code unitsThe refe rence interval = GPIIGM) reflects a 3SD or 99th percentileinter gaetano, which is thought to repr esent a potentiallyclin ically significant result in accor dance with theInternationa l Consensus Statement on th e classificationc riteria for definitive anti phospholipid syndrome (APS). JThromb Haem 2006;4:295-306. Performed At: [facility] [place], [place] [id number] Barrera MD Ph:[phone] ZXXO-1-HFRJS I <9 0-20 INFCE Result Units: GPI IgG IGG (test code unitsThe refe rence interval = GPIIGG) reflects a 3SD or 99th percentileinter gaetano, which is thought to repr esent a potentiallyclin ically significant result in accor dance with theInternationa l Consensus Statement on th e classificationc riteria for definitive anti phospholipid syndrome (APS). JThromb Haem 2006;4:295-306. DOOU-6-YZIRE I <9 0-25 INFCE Result Units: GPI IgA IGA (test code unitsThe refe rence interval = GPIIGA) reflects a 3SD or 99th percentileinter gaetano, which is thought to repr esent a potentiallyclin ically significant result in accor dance with theInternationa l Consensus Statement on th e classificationc riteria for definitive anti phospholipid syndrome (APS). JThromb Haem 2006;4:295-306. LUPUS ANTICOAGULANT [id number] 01:07:00 Test Item Value Reference Range Interpretation Comments RVVT PATIENT (test code 37.7 sec 0.0-47.0 = RVVTPAT) PTT LONG ACTING (test 46.9 sec 0.0-51.9 code = PTTLA) LUPUS ANTICOAGULANT Comment: () No lupus anticoagulant PANEL (test code = was detec danielle. LUPPT) FACTOR V [id number] 01:07:00 Test Item Value Reference Range Interpretation Comments FACTOR V MUTATION (test code = FAC5M) PROTEIN S [id number] 01:07:00 Test Item Value Reference Range Interpretation Comments PROTEIN S TOTAL (test code = PROTSTOT) % SEE RPT PROTEIN S FREE (test code = PROTSFR) % PROTEIN S (test code = PROTS) LUPUS ANTICOAGULANT [id number] 01:07:00 Test Item Value Reference Range Interpretation Comments RVVT PATIENT (test code 37.7 sec 0.0-47.0 = RVVTPAT) PTT LONG ACTING (test 46.9 sec 0.0-51.9 code = PTTLA) LUPUS ANTICOAGULANT Comment: () No lupus anticoagulant PANEL (test code = was detec danielle. LUPPT) FACTOR V [id number] 01:07:00 Test Item Value Reference Range Interpretation Comments FACTOR V MUTATION (test code = FAC5M) PROTEIN S [id number] 01:07:00 Test Item Value Reference Range Interpretation Comments PROTEIN S TOTAL 108 % 60-150 This test wa s developed and its (test code = performance PROTSTOT) characteristics determined by [facility]. It has not been cleared orapproved by [facility] Food and Drug Administration. PROTEIN S FREE 107 % 57-157 This test was developed and its (test code = performance PROTSFR) characteristics determined by [facility]. It has not been cleared orapproved by [facility] Food and Drug Administration. PROTEIN S (test 118 % 63-140 Protein S ac tivity may be falsely code = PROTS) increased (mas belén anabnormal, low result) in patients receiving direct Xainhibi tor (e.g., rivaroxaban, ap ixaban, edoxaban) or adirect thro mbin inhibitor (e.g., dabigatr an) anticoagulanttr eatment due to assay interfere nce by these drugs.Performed At: [facility] [id number] Barrera MD Ph:[phone] FACTOR II [id number] 23:07:00 Test Item Value Reference Range Interpretation Comments FACTOR II MUTATION (test code = FAC2M) ANTITHROMBIN III (ATIII)2020-07-24 23:07:00 Test Item Value Reference Range Interpretation Comments ANTITHROMBIN III (ATIII) (test code = % 85-130 AT3) ANTICARDIOLIPIN [id number] 23:07:00 Test Item Value Reference Range Interpretation Comments AB CARDIOLIPIN IGA (test code = CARDIOAAB) AB CARDIOLIPIN IGG (test code = CARDIOGAB) AB CARDIOLIPIN IGM (test code = CARDIOMAB) [id number] I [id number] 23:07:00 Test Item Value Reference Range Interpretation Comments [id number]-[id number] I <9 0-32 INFCE Result Units: GPI IgM IGM (test code unitsThe refe rence interval = GPIIGM) reflects a 3SD or 99th percentileinter gaetano, which is thought to repr esent a potentiallyclin ically significant result in accor dance with theInternationa l Consensus Statement on e classificationc riteria for definitive anti phospholipid syndrome (APS). JThromb Haem 2006;4:295-306. Performed At: [facility] [place], [place] [id number] Sanjai MD Ph:[phone] [id number]-[id number] I <9 0-20 INFCE Result Units: GPI IgG IGG (test code unitsThe refe rence interval = GPIIGG) reflects a 3SD or 99th percentileinter gaetano, which is thought to repr esent a potentiallyclin ically significant result in accor dance with theInternationa l Consensus Statement on e classificationc riteria for definitive anti phospholipid syndrome (APS). JThromb Haem 2006;4:295-306. [id number]-[id number] I <9 0-25 INFCE Result Units: GPI IgA IGA (test code unitsThe refe rence interval = GPIIGA) reflects a 3SD or 99th percentileinter gaetano, which is thought to repr esent a potentiallyclin ically significant result in accor dance with theInternationa l Consensus Statement on e classificationc riteria for definitive anti phospholipid syndrome (APS). JThromb Haem 2006;4:295-306. - DUP VEIN [id number] 17:15:00 [facility] 1980 Sex: M Name: LEE HUMPHREY Ch[place] : 1980 Age/S: 39 / M [address] Unit #: [id number] Loc: [place] [address] Phys: Lito Piña MD Acct: [id number] Dis Date: Status: ADM IN PHONE #: [phone] Exam Date: 07/21/2020 1628 FAX #: Reason: R/O DVT EXAMS: CPT: [id number] DUP VEIN MICHAEL [id number] Doppler venous ultrasound bilateral lower extremities History: R/O DVT Comparison: None at this time Location: [facility] Doppler venous ultrasound, including grayscale real-time B-mode imaging with Duplex color flow and spectral analysis, of the deep venous system of both lower extremities was performed from the common femoral veins to t he popliteal veins. Portions of the posterior tibial vein were identified. The visualized deep venous system demonstrates flow. There is compressibility. There is augmentation. No intraluminal clot is identified. IMPRESSION: Unremarkable Doppler exam, without evidence of deep venous thrombosis. at 1715 Reported and signed by: Henry Lu M.D. CC: Gopal Lemus MD; Lito Piña MD Technologist: Roya Stoddard Trnscb Date/Time: 07/21/2020 (1715) KianPMT PAGE 1 Signed Report Name: LEE HUMPHREY Chardon : 1980 Age/S:39 / M [address] Unit #: [id number] Loc: [place] [address] Phys: Lito Piña MD Acct: [id number] Dis Date: Status: ADM IN PHONE #: [phone] Exam Date: 07/21/2020 9571 FAX #: Reason: R/O DVT EXAMS: CPT: [id number] DUP VEIN MICHAEL [id number] <Continued> Orig Print D/T: S: 07/21/2020 (1814) Probe: PAGE 2 Signed ReportCOMPREHENSIVE METABOLIC PANEL 2020-07-21 04:14:00 Test Item Value Reference Range Interpretation Comments SODIUM (test code = NA) 140 mmol/L 134-147 N POTASSIUM (test code = K) 4.6 mmol/L 3.4-5.0 N CHLORIDE (test code = CL) 107 mmol/L 100-108 N CARBON DIOXIDE (test code = CO2) 30 mmol/L 21-32 N ANION GAP (test code = GAP) 3.0 GAP calc 4.0-15.0 L GLUCOSE (test code = GLU) 141 MG/DL 70-110 H BLOOD UREA NITROGEN (test code = 17 MG/DL 7-18 N BUN) GLOMERULAR FILTRATION RATE (test 48 estGFR >60 L code = GFR) CREATININE (test code = CREAT) 1.3 MG/DL 0.6-1.0 H TOTAL PROTEIN (test code = PROT) 7.3 G/DL 6.4-8.2 N ALBUMIN (test code = ALB) 3.6 G/DL 3.4-5.0 N GLOBULIN (test code = GLOB) 3.7 GM/dL ALBUMIN/GLOBULIN RATIO (test 1.0 RATIO 1.2-2.2 L code = A/G) CALCIUM (test code = CA) 8.8 MG/DL 8.5-10.1 N BILIRUBIN TOTAL (test code = 0.90 MG/DL 0.2-1.2 N BILT) SGOT/AST (test code = AST) 14 Unit/L 15-37 L SGPT/ALT (test code = ALT) 31 Unit/L 12-78 N ALKALINE PHOSPHATASE TOTAL (test 60 Unit/L 45-117 N code = ALKP) CREATINE KINASE (CK)2020-07-21 04:14:00 Test Item Value Reference Range Interpretation Comments CREATINE KINASE (CK) (test code = 123 Unit/L 26-192 N CK) Completed by Nursing: [id number] 04:14:00 Test Item Value Reference Range Interpretation Comments MAGNESIUM (test code = MAG) 2.4 MG/DL 1.8-2.4 N Completed by Nursing: [id number] 04:14:00 Test Item Value Reference Range Interpretation Comments TROPONIN-I (test < 0.015 NG/ML 0.000-0.045 N Negative: </= 0.045 code = TROPI) Positive: >/= 0.046 Correlation wit h serial results, other cardiac markers, and cl inical findings is nec essary to determine the c linical significance of this result. Quantit ative results using d ifferent methodologies s hould not be compared to one another as nume rical results may maday yby method. Completed by Nursing: NOPROTHROMBIN [id number] 04:06:00 Test Item Value Reference Range Interpretation Comments PT PATIENT (test code = PTP) 12.6 SECONDS 9.3-12.9 N INTERNATIONAL NORMAL RATIO 1.11 INR Unit 0.8-1.2 N (test code = INR) THROMBOPLASTIN TIME [id number] 04:06:00 Test Item Value Reference Range Interpretation Comments THROMBOPLASTIN TIME PARTIAL 43.7 SECONDS 26-35 H (test code = PTT) [id number] 04:06:00 Test Item Value Reference Range Interpretation Comments D-DIMER (test code = DDIMER) 494 ng/mLFEU 215-500 N CBC W/AUTO [id number] 03:48:00 Test Item Value Reference Range Interpretation Comments WHITE BLOOD CELL (test code = 6.4 K/mm3 3.5-11.0 N WBC) RED BLOOD CELL (test code = 4.58 M/mm3 4.70-6.10 L RBC) HEMOGLOBIN (test code = HGB) 14.8 G/DL 10.4-14.9 N HEMATOCRIT (test code = HCT) 45.3 % 31.5-44.1 H MEAN CELL VOLUME (test code = 98.9 Fl 84.5-98.6 H MCV) MEAN CELL HGB (test code = MCH) 32.3 pg 27.0-34.2 N MEAN CELL HGB CONCETRATION 32.7 G/DL 31.5-34.0 N (test code = MCHC) RED CELL DISTRIBUTION WIDTH 13.2 SD 11.5-14.5 N (test code = RDW) PLATELET COUNT (test code = 230 K/mm3 150-450 N PLT) MEAN PLATELET VOLUME (test code 9.80 fL 7.0-10.5 N = MPV) NEUTROPHIL % (test code = NT%) 87.8 % 40-76 H IMMATURE GRANULOCYTE % (test 0.8 % 0.0-5.0 N code = IG%) LYMPHOCYTE % (test code = LY%) 10.1 % 20.5-51.1 L MONOCYTE % (test code = MO%) 1.1 % 1.7-9.3 L EOSINOPHIL % (test code = EO%) 0.0 % 0.0-6.0 N BASOPHIL % (test code = BA%) 0.2 % 0.0-2.0 N NUCLEATED RBC % (test code = 0.0 /100WBC% 0.0-1.0 N NRBC%) NEUTROPHIL # (test code = NT#) 5.7 K/mm3 1.8-7.6 N IMMATURE GRANULOCYTE # (test 0.05 x10 3/uL 0.00-0.03 H code = IG#) LYMPHOCYTE # (test code = LY#) 0.7 K/mm3 0.6-3.2 N MONOCYTE # (test code = MO#) 0.1 K/mm3 0.3-1.1 L EOSINOPHIL # (test code = EO#) 0.0 K/mm3 0.0-0.4 N BASOPHIL # (test code = BA#) 0.0 K/mm3 0.0-0.1 N NUCLEATED RBC # (test code = 0.0 K/mm3 0.0-0.1 N NRBC#) MANUAL DIFF REQUIRED (test code NO DIFF/SCN CRITERIA = MDIFF) CBC W Auto Differential panel - [id number] 02:13:00 Test Item Value Reference Range Interpretation Comments white blood count (test code = 7.2 K/uL 4.0-12.3 white blood count) red blood count (test code = red 4.21 M/uL 3.80-5.80 blood count) hemoglobin (test code = 13.6 g/dL 11.7-17.2 hemoglobin) hematocrit (test code = 40.9 % 35.0-51.0 hematocrit) MCV [Entitic volume] (test code = 97.1 fL 83-100 34806-5) mean corpuscular hemoglobin (test 32.3 pg 26.8-33.4 code = mean corpuscular hemoglobin) mean corpuscular HGB conc (test 33.3 g/dL 30-35 code = mean corpuscular HGB conc) red cell distribution width (test 13.0 % 12.0-14.0 code = red cell distribution width) platelet count (test code = 196 K/uL 175-450 platelet count) mean platelet volume (test code = 9.7 fL 9.4-12.6 mean platelet volume) Segmented neutrophils/100 53.8 % 44.7-82.4 leukocytes in Blood (test code = 37847-5) Immature granulocytes [#/volume] 0.0 K/uL 0.0-0.03 in Blood (test code = 12608-7) lymphocyte% (test code = 34.3 % 10.0-50.0 lymphocyte%) mono % (test code = mono %) 9.3 % 3.9-13.4 eos % (test code = eos %) 1.4 % 0.0-6.4 Basophils/100 leukocytes in 0.8 % 0.2-1.2 Unspecified specimen (test code = 41655-9) Band form neutrophils [#/volume] 3.88 K/uL 1.78-5.38 in Blood (test code = 52725-7) Lymphocytes [#/volume] in 2.5 K/uL 1.32-3.57 Unspecified specimen by Automated count (test code = 22084-7) mono # (test code = mono #) 0.67 K/uL 0.30-0.82 eos # (test code = eos #) 0.10 K/uL 0.04-0.54 basophil # (test code = basophil 0.06 K/uL 0.01-0.08 #) NRBC% (test code = NRBC%) 0 /100 WBC 0-0.2 NRBC# (test code = NRBC#) 0 K[facility]uL [facility] W Reflex Culture panel - Urine 2020-03-11 02:13:00 Test Item Value Reference Range Interpretation Comments Color of Urine by Auto (test yellow code = 93742-9) Appearance of Urine (test code clear clear = 5767-9) Glucose [Presence] in Urine by negative negative Automated test strip (test code = 04343-1) Bilirubin.total [Mass/volume] negative negative in Urine (test code = 1978-6) Ketones [Mass/volume] in Urine negative negative by Automated test strip (test code = 68263-4) Specific gravity of Urine by 1.032 1.003-1.030 H Automated test strip (test code = 77091-5) blood urine (test code = blood negative negative urine) pH of Urine (test code = 5.500 5-9 2756-5) protein urine (UA) (test code = =1+ (30 negative H protein urine (UA)) Urobilinogen [Presence] in =2.0 0.2-1.0 H Urine (test code = 99208-9) Nitrite [Presence] in Urine by negative negative Test strip (test code = 5802-4) Leukocyte esterase [Presence] negative negative in Urine by Automated test strip (test code = 21414-8) Erythrocytes [#/volume] in =1-5 0-5 Urine by Automated count (test code = 798-9) Leukocytes [#/area] in Urine =1-5 0-5 sediment by Automated count (test code = 02174-2) Epithelial cells [Presence] in <1 0-5 Urine sediment by Light microscopy (test code = 89185-8) Bacteria identified in Urine by none detected none detect Culture (test code = 630-4) Casts [#/area] in Urine =2-5 none detect sediment by Automated count (test code = 18952-3) urine culture added? (test code no = urine culture added?) [facility]/volume] in [id number] 02:13:00 Test Item Value Reference Range Interpretation Comments Hemoglobin A1c [Mass/volume] in Blood 5.4 % 4.0-6.0 (test code = 85612-4) [facility] 2000 [facility] - Serum or Plasma 2020-03-11 02:13:00 Test Item Value Reference Range Interpretation Comments Glucose [Mass/volume] in Serum or 85 mg/dL 74-106 Plasma (test code = 2345-7) Urea nitrogen [Mass/volume] in 11 mg/dL 6-20 Serum or Plasma (test code = 3094-0) osmolality calculated,serum (test 276 mOsm/kg 280-300 L code = osmolality calculated,serum) creatinine (test code = 1.2 mg/dL 0.70-1.20 creatinine) glomerular filtration rate (test >60.00 code = glomerular filtration rate) Urea nitrogen/Creatinine [Mass 9.2 12-20 L Ratio] in Serum or Plasma (test code = 3097-3) sodium level (test code = sodium 139 mmol/L 135-145 level) potassium level (test code = 4.1 mmol/L 3.5-5.2 potassium level) chloride level (test code = 104 mmol/L 98-108 chloride level) CO2 (test code = CO2) 24 mmol/L 21-32 anion gap (test code = anion gap) 15.1 mEq/L 12-20 calcium level (test code = 8.7 mg/dL 8.6-10.0 calcium level) total protein (test code = total 6.9 g/dL 6.6-8.7 protein) albumin (test code = albumin) 4.1 g/dL 3.5-5.2 globulin (test code = globulin) 2.8 gm/dL A/G ratio (test code = A/G ratio) 1.5 >1.0 bilirubin,total (test code = 1.2 mg/dL 0.0-1.2 bilirubin,total) AST/SGOT (test code = AST/SGOT) 22 U/L 15-40 Alanine aminotransferase 27 U/L 0-41 [Enzymatic activity/volume] in Serum or Plasma (test code = 1742-6) Alkaline phosphatase [Enzymatic 46 U/L 40-130 activity/volume] in Serum or Plasma (test code = 6768-6) [facility] - Serum or [id number] 02:13:00 Test Item Value Reference Range Interpretation Comments cholesterol level (test code = 148 mg/dL 150-200 L cholesterol level) triglycerides level (test code = 72 mg/dL <150 triglycerides level) HDL cholesterol (test code = HDL 57 mg/dL >55 cholesterol) LDL cholesterol direct (test code = 90 mg/dL <100 LDL cholesterol direct) cholesterol risk ratio (test code = 2.596 cholesterol risk ratio) [facility] [Units/volume] in Serum or [id number] 02:13:00 Test Item Value Reference Range Interpretation Comments Thyrotropin [Units/volume] in 0.59 uIU/mL 0.36-3.74 Serum or Plasma (test code = 3016-3) [facility] (T4) [Mass/volume] in Serum or [id number] 02:13:00 Test Item Value Reference Range Interpretation Comments T4 (test code = T4) 6.4 ug/dL 4.5-11.7 [facility] W Auto Differential panel - [id number] 02:13:00 Test Item Value Reference Range Interpretation Comments white blood count (test code = 7.2 K/uL 4.0-12.3 white blood count) red blood count (test code = red 4.21 M/uL 3.80-5.80 blood count) hemoglobin (test code = 13.6 g/dL 11.7-17.2 hemoglobin) hematocrit (test code = 40.9 % 35.0-51.0 hematocrit) MCV [Entitic volume] (test code = 97.1 fL 83-100 66437-0) mean corpuscular hemoglobin (test 32.3 pg 26.8-33.4 code = mean corpuscular hemoglobin) mean corpuscular HGB conc (test 33.3 g/dL 30-35 code = mean corpuscular HGB conc) red cell distribution width (test 13.0 % 12.0-14.0 code = red cell distribution width) platelet count (test code = 196 K/uL 175-450 platelet count) mean platelet volume (test code = 9.7 fL 9.4-12.6 mean platelet volume) Segmented neutrophils/100 53.8 % 44.7-82.4 leukocytes in Blood (test code = 48916-0) Immature granulocytes [#/volume] 0.0 K/uL 0.0-0.03 in Blood (test code = 69391-7) lymphocyte% (test code = 34.3 % 10.0-50.0 lymphocyte%) mono % (test code = mono %) 9.3 % 3.9-13.4 eos % (test code = eos %) 1.4 % 0.0-6.4 Basophils/100 leukocytes in 0.8 % 0.2-1.2 Unspecified specimen (test code = 74768-3) Band form neutrophils [#/volume] 3.88 K/uL 1.78-5.38 in Blood (test code = 92839-9) Lymphocytes [#/volume] in 2.5 K/uL 1.32-3.57 Unspecified specimen by Automated count (test code = 09886-7) mono # (test code = mono #) 0.67 K/uL 0.30-0.82 eos # (test code = eos #) 0.10 K/uL 0.04-0.54 basophil # (test code = basophil 0.06 K/uL 0.01-0.08 #) NRBC% (test code = NRBC%) 0 /100 WBC 0-0.2 NRBC# (test code = NRBC#) 0 K/uL [facility] GroupUrinal[facility] complete W Reflex Culture panel - Urine 2020-03-11 02:13:00 Test Item Value Reference Range Interpretation Comments Color of Urine by Auto (test yellow code = 86116-5) Appearance of Urine (test code clear clear = 5767-9) Glucose [Presence] in Urine by negative negative Automated test strip (test code = 69084-4) Bilirubin.total [Mass/volume] negative negative in Urine (test code = 1978-6) Ketones [Mass/volume] in Urine negative negative by Automated test strip (test code = 55528-8) Specific gravity of Urine by 1.032 1.003-1.030 H Automated test strip (test code = 22034-0) blood urine (test code = blood negative negative urine) pH of Urine (test code = 5.500 5-9 2756-5) protein urine (UA) (test code = =1+ (30 negative H protein urine (UA)) Urobilinogen [Presence] in =2.0 0.2-1.0 H Urine (test code = 48018-8) Nitrite [Presence] in Urine by negative negative Test strip (test code = 5802-4) Leukocyte esterase [Presence] negative negative in Urine by Automated test strip (test code = 31425-8) Erythrocytes [#/volume] in =1-5 0-5 Urine by Automated count (test code = 798-9) Leukocytes [#/area] in Urine =1-5 0-5 sediment by Automated count (test code = 54975-4) Epithelial cells [Presence] in <1 0-5 Urine sediment by Light microscopy (test code = 04569-4) Bacteria identified in Urine by none detected none detect Culture (test code = 630-4) Casts [#/area] in Urine =2-5 none detect sediment by Automated count (test code = 52731-9) urine culture added? (test code no = urine culture added?) [facility] A[facility] [Mass/volume] in [id number] 02:13:00 Test Item Value Reference Range Interpretation Comments Hemoglobin A1c [Mass/volume] in Blood 5.4 % 4.0-6.0 (test code = 01436-1) [facility] 2000 [facility] - Serum or Plasma 2020-03-11 02:13:00 Test Item Value Reference Range Interpretation Comments Glucose [Mass/volume] in Serum or 85 mg/dL 74-106 Plasma (test code = 2345-7) Urea nitrogen [Mass/volume] in 11 mg/dL 6-20 Serum or Plasma (test code = 3094-0) osmolality calculated,serum (test 276 mOsm/kg 280-300 L code = osmolality calculated,serum) creatinine (test code = 1.2 mg/dL 0.70-1.20 creatinine) glomerular filtration rate (test >60.00 code = glomerular filtration rate) Urea nitrogen/Creatinine [Mass 9.2 12-20 L Ratio] in Serum or Plasma (test code = 3097-3) sodium level (test code = sodium 139 mmol/L 135-145 level) potassium level (test code = 4.1 mmol/L 3.5-5.2 potassium level) chloride level (test code = 104 mmol/L 98-108 chloride level) CO2 (test code = CO2) 24 mmol/L 21-32 anion gap (test code = anion gap) 15.1 mEq/L 12-20 calcium level (test code = 8.7 mg/dL 8.6-10.0 calcium level) total protein (test code = total 6.9 g/dL 6.6-8.7 protein) albumin (test code = albumin) 4.1 g/dL 3.5-5.2 globulin (test code = globulin) 2.8 gm/dL A/G ratio (test code = A/G ratio) 1.5 >1.0 bilirubin,total (test code = 1.2 mg/dL 0.0-1.2 bilirubin,total) AST/SGOT (test code = AST/SGOT) 22 U/L 15-40 Alanine aminotransferase 27 U/L 0-41 [Enzymatic activity/volume] in Serum or Plasma (test code = 1742-6) Alkaline phosphatase [Enzymatic 46 U/L 40-130 activity/volume] in Serum or Plasma (test code = 6768-6) [facility] - Serum or [id number] 02:13:00 Test Item Value Reference Range Interpretation Comments cholesterol level (test code = 148 mg/dL 150-200 L cholesterol level) triglycerides level (test code = 72 mg/dL <150 triglycerides level) HDL cholesterol (test code = HDL 57 mg/dL >55 cholesterol) LDL cholesterol direct (test code = 90 mg/dL <100 LDL cholesterol direct) cholesterol risk ratio (test code = 2.596 cholesterol risk ratio) [facility] [Units/volume] in Serum or [id number] 02:13:00 Test Item Value Reference Range Interpretation Comments Thyrotropin [Units/volume] in 0.59 uIU/mL 0.36-3.74 Serum or Plasma (test code = 3016-3) [facility] (T4) [Mass/volume] in Serum or [id number] 02:13:00 Test Item Value Reference Range Interpretation Comments T4 (test code = T4) 6.4 ug/dL 4.5-11.7 [facility]
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
[2020-08-05 19:58] LABS: Urine Blood NEGATIVE (NEG); Urine Glucose NEGATIVE (NEG); Urine Protein TRACE (NEG); Urine Specific Gravity >1.030 (1.005-1.030); Urine pH 5.5 (5.0-7.0)
--- NOTE | 2020-08-05 22:19 | ER ---
Nurse's Notes [facility] Name: Flaquito Jules Age: 39 yrs Sex: Male : 1980 Arrival Date: 08/05/2020 Time: 19:06 Bed Waiting Private MD: Diagnosis: Presentation: 08/05 19:10 Chief complaint: Patient states: "My breathing ain't too good and having pain with lp1 urination"; Shortness of breath since July 10, when hospitalized for PE, states having to use Albuterol inhaler about 20x per day, denies any chest pain, palpitations; Given Prednisone prescription on Saturday after CT with iodine and allergic reaction, reports worsened shortness of breath since, did not finish Prednisone prescription. Reports pain with urination for the past 4 days. Coronavirus screen: Client denies travel out of the [place] in the last 14 days. At this time, the client does not indicate any symptoms associated with coronavirus-19. The client reports previous COVID testing was negative. Date of collection: August 01, 2020. Ebola Screen: No symptoms or risks identified at this time. Risk Assessment: Do you want to hurt yourself or someone else? Patient reports no desire to harm self or others. Onset of symptoms was August 05, 2020. 19:10 Method Of Arrival: Ambulatory lp1 19:10 Acuity: ARIS 3 lp1 19:23 Initial Sepsis Screen: Does the patient meet any 2 criteria? No. Patient's initial lp1 sepsis screen is negative. Does the patient have a suspected source of infection? No. Patient's initial sepsis screen is negative. Triage Assessment: 19:26 General: Appears in no apparent distress. Behavior is calm, cooperative. Pain: Denies lp1 pain. Respiratory: Reports shortness of breath on exertion Airway is patent Respiratory effort is even, unlabored, Onset: The symptoms/episode began/occurred gradually, the patient has mild shortness of breath. Historical: - Allergies: 19:20 Aspirin; lp1 19:20 Iodinated Contrast Media - IV Dye; lp1 - Home Meds: 19:20 Albuterol Inhl [Active]; Eliquis oral oral [Active]; lp1 - PMHx: 19:20 PE; Asthma; lp1 - PSHx: 19:20 None; lp1 - Immunization history:: Adult Immunizations up to date, Flu vaccine is not up to date. - Social history:: Smoking status: Patient reports the use of cigarette tobacco products, denies chronic smoking, but will smoke occasionally. Screenin:21 Abuse screen: Denies threats or abuse. Denies injuries from another. Nutritional lp1 screening: No deficits noted. Tuberculosis screening: No symptoms or risk factors identified. Fall Risk None identified. Vital Signs: 19:23 BP 113 / 65; Pulse 79; Resp 18; Temp 98.6(O); Pulse Ox 95% on R/A; Weight 79.38 kg (R); lp1 Height 6 ft. 0 in. (182.88 cm); 19:23 Body Mass Index 23.73 (79.38 kg, 182.88 cm) lp1 ED Course: 19:06 Patient arrived in ED. ds1 19:19 Triage completed. lp1 19:19 Arm band placed on left wrist. lp1 21:55 Patient's name was called from ER lobby. No response. Unable to locate patient. Will lp1 disposition as left without being seen by a provider. Administered Medications: No medications were administered Outcome: 22:18 Patient left the ED. lp1 Signatures: Carolina Wang ds1 Marie Waterman RN RN lp1 Corrections: (The following items were deleted from the chart) 19:24 19:23 Temp 98.6F Oral; 79.38 kg Reported; Height 6 ft. 0 in.; BMI: 23.7; lp1 lp1
[2020-08-10 23:21] VITALS: BP 113/65; TEMP 98.6; O2SAT 95
== END 2020-08-05 22:18 | disposition left against medical advice (07) ==
LOC: ER 19:01
DX: Z53.21 Procedure and treatment not carried out due to patient leaving prior to being seen by health care provider (principal)
CPT/HCPCS: 81003; 99281